=== PATIENT | female | born 1975 | race Hispanic/Latino ===

== ENCOUNTER 2017-05-09 15:30 | Inpatient (IN) | payer MEDICAID ==
[2017-05-09 15:31] VITALS: BMI 27.3
[2017-05-09] MEDS ORDERED: Sodium Chloride 0.9% 1,000 ML IV ONE (15:56)
--- NOTE | 2017-05-09 16:23 | C.PDOC ---
History Of Present Illness 41 y/o female presents to ED with complaints of multiple episodes of Epistaxis since last Saturday. Patient states she was seen at [facility] yesterday and a packing was inserted in right nostril and instructed to follow up with Dr. Arguelles. Dr. Arguelles saw her and changed packing with instructions that if bleeding continued to come back. Patient states she was on her way home when she started to bleed from left nostril and advised to come to ED for evaluation. No other complaints at this time. Time Seen by Provider: 05/09/17 15:52 Chief Complaint (Nursing): ENT Problem History Per: Patient History/Exam Limitations: None Onset/Duration Of Symptoms: Days Current Symptoms Are (Timing): Still Present Past Medical History Reviewed: Historical Data, Nursing Documentation, Vital Signs Vital Signs: Last Vital Signs Temp 98.1 F 05/09/17 15:36 Pulse 85 05/09/17 15:36 Resp 20 05/09/17 15:36 BP 123/88 05/09/17 15:36 Pulse Ox 100 05/09/17 16:26 - [facility] Procedures LAPAROSCOPIC CHOLECYSTECTOMY (02/28/15) OTHER OPEN UMBILICAL HERNIORRHAPHY (02/28/15) Family History: States: No Known Family Hx - Social History Hx Alcohol Use: No Hx Substance Use: No - Immunization History Hx Tetanus Toxoid Vaccination: No Hx Influenza Vaccination: No Review Of Systems Except As Marked, All Systems Reviewed And Found Negative. Constitutional: Negative for: Fever, Chills ENT: Positive for: Nose Discharge Gastrointestinal: Negative for: Nausea, Vomiting, Diarrhea Neurological: Positive for: Dizziness Physical Exam - Physical Exam Appears: Chronically Ill Skin: Pale Head: Atraumatic, Normacephalic Nose: Epistaxis, Other (Packing on right nostril) Oral Mucosa: Dry Neurological/Psych: Oriented x3 ED Course And Treatment - Laboratory Results Result Diagrams: 05/09/17 16:55 05/09/17 16:55 O2 Sat by Pulse Oximetry: 100 (RA) Pulse Ox Interpretation: Normal Medical Decision Making Medical Decision Making: Patient with symptomatic anemia. SOB, from epistaxis. Spoke with Dr. Garber. Agrees with plan, Obs. Disposition Discussed With : Sebastien Garber Counseled Patient/Family Regarding: Studies Performed, Diagnosis - Disposition Disposition: HOSPITALIZED Disposition Time: 17:22 Condition: GUARDED - POA Present On Arrival: None - Clinical Impression Clinical Impression: Anemia, Epistaxis, recurrent - Cherylibe Statement The provider has reviewed the documentation as recorded by the Cherie Sawyer All medical record entries made by the Cherie were at my direction and personally dictated by me. I have reviewed the chart and agree that the record accurately reflects my personal performance of the history, physical exam, medical decision making, and the department course for this patient. I have also personally directed, reviewed, and agree with the discharge instructions and disposition. Decision To Admit - Pt Status Changed To: Hospital Disposition Of: Observation - . Bed Request Type: Regular Patient Diagnosis: Anemia, Epistaxis, recurrent
[2017-05-09] MEDS ORDERED: Sodium Chloride 0.9% 1,000 ML ONE (16:58)
[2017-05-09 17:00] LABS: BASO % 0.2 % (0.0-2.0); EOS % 0.1 % (0.0-4.0); HEMOGLOBIN 7.6 g/dL (11.0-16.0); LYMPH # 1.4 K/uL (1.0-4.3); LYMPH % 8.3 % (20.0-40.0); MEAN CELL VOLUME 86.7 fL (81.0-99.0); MEAN CORPUSCULAR HEMOGLOBIN 28.2 pg (27.0-31.0); MEAN CORPUSCULAR HGB CONC 32.5 g/dL (33.0-37.0); MEAN PLATELET VOLUME 7.4 fL (7.2-11.7); MONO # 0.7 K/uL (0.0-0.8); NEUT # 14.3 K/uL (1.8-7.0); NEUT % 87.4 % (50.0-75.0); PLATELET COUNT 291 K/uL (130-400); RBC 2.71 Mil/uL (3.80-5.20); RED CELL DISTRIBUTION WIDTH 13.1 % (11.5-14.5); WHITE BLOOD COUNT 16.4 K/uL (4.8-10.8)
[2017-05-09 17:09] LABS: ALBUMIN 3.7 g/dL (3.5-5.0)
[2017-05-09 17:12] LABS: AST/SGOT 20 U/L (14-36); GFR AFRICAN-AMERICAN > 60; GFR NON-AFRICAN AMERICAN > 60
[2017-05-09 17:13] LABS: ALT/SGPT 34 U/L (9-52); BLOOD UREA NITROGEN 25 mg/dL (7-17); CALCIUM 8.2 mg/dl (8.6-10.4)
[2017-05-09] MEDS ORDERED: Morphine 4 MG/ML VIAL ONE ×2 (17:15→17:58)
[2017-05-09 17:21] LABS: B-TYPE NATRIURETIC PEPTIDE 52.9 pg/mL (0-450)
[2017-05-09] MEDS ORDERED: ceFAZolin IV 1 gm in Dextrose 1 GM/50 ML BAG IVPB STA (17:53)
[2017-05-09 18:24] LABS: BANDS 2 % (0-2); LYMPHOCYTE 4 % (20-40); NEUTROPHIL 94 % (50-75); PLATELET ESTIMATE NORMAL (NORMAL); TOTAL CELLS COUNTED 100
[2017-05-09] MEDS ORDERED: Phenol Topical 1.4% Throat Spray (180 ml) MT PRN (22:00)
--- NOTE | 2017-05-09 23:09 | CP.PCM.HP ---
History of Present Illness - History of Present Illness History of Present Illness: 41 y/o female presents to ED with complaints of multiple episodes of Epistaxis since last Saturday. Patient states she was seen at [facility] yesterday and a packing was inserted in right nostril and instructed to follow up with Dr. Arguelles. Dr. Arguelles saw her and changed packing with instructions that if bleeding continued to come back. Patient states she was on her way home when she started to bleed from left nostril and advised to come to ED for evaluation. No other complaints at this time. Present on Admission - Present on Admission Any Indicators Present on Admission: Yes Past Patient History - Past Medical History & Family History Past Medical History?: No - Past Social History Smoking Status: Never Smoked - MUSCULOSKELETAL/RHEUMATOLOGICAL Hx Falls: No - PSYCHIATRIC Hx Substance Use: No - SURGICAL HISTORY Hx Surgeries: No - ANESTHESIA Hx Anesthesia: No Hx Anesthesia Reactions: No Hx Malignant Hyperthermia: No Has any member of the family had a problem w/ anesthesia?: No Meds Allergies/Adverse Reactions: Allergies Allergy/AdvReac Type Severity Reaction Status Date / Time No Known Allergies Allergy Verified 05/09/17 15:41 Results - Vital Signs Recent Vital Signs: Last Vital Signs Temp 98.1 F 05/09/17 15:36 Pulse 89 05/09/17 20:45 Resp 20 05/09/17 20:45 BP 150/80 05/09/17 20:45 Pulse Ox 100 05/09/17 20:49 - Labs Result Diagrams: 05/13/17 07:15 05/13/17 07:15 Assessment & Plan (1) Anemia Status: Acute (2) Epistaxis, recurrent Status: Acute
[2017-05-09 23:20] LABS: HEMOGLOBIN 6.9 g/dL (11.0-16.0); MEAN CELL VOLUME 86.8 fL (81.0-99.0); MEAN CORPUSCULAR HEMOGLOBIN 28.7 pg (27.0-31.0); MEAN CORPUSCULAR HGB CONC 33.1 g/dL (33.0-37.0); MEAN PLATELET VOLUME 7.1 fL (7.2-11.7); RBC 2.39 Mil/uL (3.80-5.20); RED CELL DISTRIBUTION WIDTH 13.1 % (11.5-14.5); WHITE BLOOD COUNT 13.3 K/uL (4.8-10.8)
[2017-05-10] MEDS ORDERED: Phenol Topical 1.4% Throat Spray (180 ml) MT PRN (03:26)
[2017-05-10 06:48] LABS: MEAN CELL VOLUME 86.5 fL (81.0-99.0); MEAN CORPUSCULAR HEMOGLOBIN 28.5 pg (27.0-31.0); MEAN CORPUSCULAR HGB CONC 32.9 g/dL (33.0-37.0); MEAN PLATELET VOLUME 7.6 fL (7.2-11.7); RBC 2.29 Mil/uL (3.80-5.20); RED CELL DISTRIBUTION WIDTH 13.3 % (11.5-14.5); WHITE BLOOD COUNT 11.8 K/uL (4.8-10.8)
[2017-05-10 06:56] LABS: BLOOD UREA NITROGEN 13 mg/dL (7-17); CALCIUM 7.9 mg/dl (8.6-10.4); GFR AFRICAN-AMERICAN > 60; GFR NON-AFRICAN AMERICAN > 60
[2017-05-10 07:07] LABS: HEMOGLOBIN 6.5 g/dL (11.0-16.0)
[2017-05-10] MEDS ORDERED: Ferric Sodium Gluconat Complex 62.5 mg/5 ml Vial IVPB SCH (10:00)
[2017-05-10] MEDS ORDERED: Pneumococcal 23-Valent Vaccine IM ONE (10:00)
[2017-05-10] MEDS: Potassium Chloride 20 mEq ER Tab PO SCH (10:59)
--- NOTE | 2017-05-10 11:03 | CARD ---
APPROVED REPORT EKG Measurement Heart [id number] <Conclusion> Normal sinus rhythm Normal ECG
[2017-05-10] MEDS ORDERED: Apap-Butalbital-Caffeine 325-50-40mg Tab PO PRN (13:45)
--- NOTE | 2017-05-10 16:25 | CP.PCM.PN ---
Subjective - Date & Time of Evaluation Date of Evaluation: 05/10/17 Time of Evaluation: 16:22 - Subjective Subjective: no epistaxis with the pack in place. Patient has a lot of pain. CBC noted with low hemoglobin head: atraumatic face: good movements const: well fed com: communicates well external nose and ears: no masses nose: pack in place, no bleeding oc/op: no blood pnd lips/gums: no masses, neck: supple lymph: no lad thyroid: no goiter a/p: epistaxis posterior will take to or to remove pack and cauterize Objective - Vital Signs/Intake and Output Vital Signs (last 24 hours): Temp Pulse Resp BP Pulse Ox 98.3 F 86 20 142/82 100 05/10/17 16:00 05/10/17 16:00 05/10/17 16:00 05/10/17 16:00 05/10/17 16:00 Intake and Output: 05/10/17 05/10/17 06:59 18:59 Intake Total 100 405 Balance 100 405 - Medications Medications: Current Medications Acetaminophen/Butalbital/Caffeine (Fioricet) 1 tab PO Q6 PRN PRN Reason: Headache Last Admin: 05/10/17 14:29 Dose: 1 tab Benzonatate (Tessalon Perles) 100 mg PO TID PRN PRN Reason: Sore Throat Last Admin: 05/10/17 03:55 Dose: 100 mg Ferric Sodium Gluconate Complex (Ferrlecit) 125 mg IVPB DAILY [facility] Stop: 05/18/17 10:01 Losartan Potassium (Cozaar) 50 mg PO DAILY [facility] Last Admin: 05/10/17 11:04 Dose: 50 mg Phenol/Menthol (Phenaseptic 1.4% Throat [place]) 5 ml MT Q4 PRN PRN Reason: Sore Throat Last Admin: 05/10/17 04:01 Dose: 5 ml Potassium Chloride (K-Dur 20 Meq Er Tab) 20 meq PO DAILY E[facility] Stop: 05/12/17 23:59 Last Admin: 05/10/17 10:59 Dose: 20 meq - Labs Labs: 05/10/17 06:27 05/10/17 06:27
[2017-05-10] MEDS: Ferric Sodium Gluconat Complex 62.5 mg/5 ml Vial IVPB SCH (16:56)
[2017-05-10] MEDS ORDERED: Apap-Butalbital-Caffeine 325-50-40mg Tab PO STA (16:57)
--- NOTE | 2017-05-10 18:17 | RAD ---
HISTORY: for OR COMPARISON: No prior. TECHNIQUE: Chest PA and lateral FINDINGS: LUNGS: The lungs are well inflated and clear. PLEURA: No significant pleural effusion identified. No pneumothorax apparent. CARDIOVASCULAR: Normal. OSSEOUS STRUCTURES: No significant abnormalities. VISUALIZED UPPER ABDOMEN: Normal. OTHER FINDINGS: None. IMPRESSION: No acute findings.
[2017-05-10] MEDS: Apap-Butalbital-Caffeine 325-50-40mg Tab PO PRN (23:08)
--- NOTE | 2017-05-10 23:08 | CP.PCM.PN ---
Subjective - Date & Time of Evaluation Date of Evaluation: 05/10/17 Time of Evaluation: 19:40 - Subjective Subjective: no epistaxis with the pack in place. Patient has a lot of pain. CBC noted with low hemoglobin Objective - Vital Signs/Intake and Output Vital Signs (last 24 hours): Temp Pulse Resp BP Pulse Ox 98.3 F 86 20 142/82 100 05/10/17 16:00 05/10/17 16:00 05/10/17 16:00 05/10/17 16:00 05/10/17 16:00 - Medications Medications: Current Medications Acetaminophen/Butalbital/Caffeine (Fioricet) 2 tab PO Q6 PRN PRN Reason: Headache Benzonatate (Tessalon Perles) 100 mg PO TID PRN PRN Reason: Sore Throat Last Admin: 05/10/17 03:55 Dose: 100 mg Ferric Sodium Gluconate Complex (Ferrlecit) 125 mg IVPB DAILY [facility] Stop: 05/18/17 10:01 Last Admin: 05/10/17 16:56 Dose: 125 mg Losartan Potassium (Cozaar) 50 mg PO DAILY [facility] Last Admin: 05/10/17 11:04 Dose: 50 mg Phenol/Menthol (Phenaseptic 1.4% Throat [place]) 5 ml MT Q4 PRN PRN Reason: Sore Throat Last Admin: 05/10/17 04:01 Dose: 5 ml Potassium Chloride (K-Dur 20 Meq Er Tab) 20 meq PO DAILY [facility] Stop: 05/12/17 23:59 Last Admin: 05/10/17 10:59 Dose: 20 meq
--- NOTE | 2017-05-11 03:40 | PROCN ---
PRE-PROCEDURE DIAGNOSES: 1. Posterior epistaxis. 2. Posterior pack on the right. POST-PROCEDURE DIAGNOSES: 1. Posterior epistaxis. 2. Posterior pack on the right. PROCEDURE: The patient was placed in seated position, a Carrasquillo catheter was inserted in the nasal cavity. The balloon was inflated in the nasopharynx. Xeroform gauze was packed against the Carrasquillo catheter balloon going from the posterior to anterior direction and the Carrasquillo was secured in place using a clamp. The left side of the nose was also packed using xeroform gauze going from posterior to anterior direction. Bleeding was noted to be controlled. The patient tolerated the procedure well. Adarsh Arguelles MD MTDD
[2017-05-11] MEDS: Apap-Butalbital-Caffeine 325-50-40mg Tab PO PRN (04:37)
[2017-05-11 06:40] LABS: BLOOD UREA NITROGEN 9 mg/dL (7-17); GFR AFRICAN-AMERICAN > 60; GFR NON-AFRICAN AMERICAN > 60
[2017-05-11 06:41] LABS: CALCIUM 8.5 mg/dl (8.6-10.4)
[2017-05-11 06:42] LABS: HEMOGLOBIN 9.1 g/dL (11.0-16.0); MEAN CELL VOLUME 87.7 fL (81.0-99.0); MEAN CORPUSCULAR HEMOGLOBIN 29.7 pg (27.0-31.0); MEAN CORPUSCULAR HGB CONC 33.9 g/dL (33.0-37.0); MEAN PLATELET VOLUME 7.4 fL (7.2-11.7); RBC 3.07 Mil/uL (3.80-5.20)
[2017-05-11 06:50] LABS: INR 1.1; PROTHROMBIN TIME 12.1 SECONDS (9.7-12.2)
[2017-05-11] MEDS ORDERED: Lactated Ringer's 1,000 ML IV ONE (07:45)
[2017-05-11] MEDS ORDERED: Midazolam 2 MG/2 ML VIAL ONE (07:55)
[2017-05-11] MEDS ORDERED: Propofol 10 mg/ml Inj (20 ML) ONE (07:55)
[2017-05-11] MEDS ORDERED: ceFAZolin IV 1 gm in Dextrose 1 GM/50 ML BAG IVPB ONE (07:59)
[2017-05-11] MEDS ORDERED: EPINEPHrine 1:1000 Nasal Sol(30mL) ONE (07:59)
[2017-05-11] MEDS ORDERED: Succinylcholine Chloride 20 mg/ml Syr (5 ml) IV ONE (08:37)
[2017-05-11] MEDS ORDERED: Rocuronium 10 mg/ml (5 ml) ONE (08:37)
[2017-05-11] MEDS ORDERED: HYDROmorphone 0.5 mg/0.5 ml ISec IVP PRN (08:59)
[2017-05-11] MEDS: Potassium Chloride 20 mEq ER Tab PO SCH (11:39)
[2017-05-11] MEDS: Ferric Sodium Gluconat Complex 62.5 mg/5 ml Vial IVPB SCH (11:39)
[2017-05-11] MEDS ORDERED: Potassium Chloride 20 mEq/15 ml LIQ UD PO STA (14:18)
--- NOTE | 2017-05-12 01:23 | CP.PCM.PN ---
Subjective - Date & Time of Evaluation Date of Evaluation: 05/11/17 Time of Evaluation: 13:00 - Subjective Subjective: Pt seen and evalauted, is improving Objective - Vital Signs/Intake and Output Vital Signs (last 24 hours): Temp Pulse Resp BP Pulse Ox 98 F 94 H 20 110/75 96 05/11/17 23:50 05/11/17 23:50 05/11/17 23:50 05/11/17 23:50 05/11/17 23:50 Intake and Output: 05/11/17 05/12/17 18:59 06:59 Intake Total 350 400 Balance 350 400 - Medications Medications: Current Medications Acetaminophen/Butalbital/Caffeine (Fioricet) 2 tab PO Q6 PRN PRN Reason: Headache Last Admin: 05/11/17 04:37 Dose: 2 tab Benzonatate (Tessalon Perles) 100 mg PO TID PRN PRN Reason: Sore Throat Last Admin: 05/10/17 03:55 Dose: 100 mg Ferric Sodium Gluconate Complex (Ferrlecit) 125 mg IVPB DAILY [facility] Stop: 05/18/17 10:01 Last Admin: 05/11/17 11:39 Dose: 125 mg Losartan Potassium (Cozaar) 50 mg PO DAILY [facility] Last Admin: 05/11/17 11:38 Dose: Not Given Phenol/Menthol (Phenaseptic 1.4% Throat [place]) 5 ml MT Q4 PRN PRN Reason: Sore Throat Last Admin: 05/10/17 04:01 Dose: 5 ml Potassium Chloride (K-Dur 20 Meq Er Tab) 20 meq PO DAILY [facility] Stop: 05/12/17 23:59 Last Admin: 05/11/17 11:39 Dose: 20 meq - Labs Labs: 05/11/17 06:22 05/11/17 06:22 PT 12.1 SECONDS (9.7-12.2) 05/11/17 06:22 INR 1.1 05/11/17 06:22 APTT 29 SECONDS (21-34) 05/11/17 06:22 - Constitutional Appears: No Acute Distress - Head Exam Head Exam: ATRAUMATIC, NORMAL INSPECTION, NORMOCEPHALIC - Eye Exam Eye Exam: EOMI, Normal appearance, PERRL Pupil Exam: NORMAL ACCOMODATION, PERRL - Respiratory Exam Respiratory Exam: Clear to Ausculation Bilateral, NORMAL BREATHING PATTERN - Cardiovascular Exam Cardiovascular Exam: REGULAR RHYTHM, +S1, +S2. absent: Murmur - GI/Abdominal Exam GI & Abdominal Exam: Soft, Normal Bowel Sounds. absent: Tenderness Assessment and Plan (1) Anemia Status: Acute (2) Epistaxis, recurrent Status: Acute
[2017-05-12 07:59] LABS: BASO # 0.1 K/uL (0.0-0.2); BASO % 0.5 % (0.0-2.0); EOS # 0.1 K/uL (0.0-0.7); EOS % 1.1 % (0.0-4.0); HEMOGLOBIN 8.2 g/dL (11.0-16.0); LYMPH % 32.1 % (20.0-40.0); MEAN CELL VOLUME 88.3 fL (81.0-99.0); MEAN CORPUSCULAR HEMOGLOBIN 29.8 pg (27.0-31.0); MEAN CORPUSCULAR HGB CONC 33.8 g/dL (33.0-37.0); MEAN PLATELET VOLUME 7.3 fL (7.2-11.7); MONO % 10.5 % (0.0-10.0); NEUT # 5.2 K/uL (1.8-7.0); NEUT % 55.8 % (50.0-75.0); NRBC % 0.3 % (0.0-2.0); RBC 2.74 Mil/uL (3.80-5.20); RED CELL DISTRIBUTION WIDTH 13.2 % (11.5-14.5); WHITE BLOOD COUNT 9.3 K/uL (4.8-10.8)
[2017-05-12 08:29] LABS: ALBUMIN 3.4 g/dL (3.5-5.0)
[2017-05-12 08:32] LABS: ALT/SGPT 33 U/L (9-52); AST/SGOT 23 U/L (14-36); BLOOD UREA NITROGEN 15 mg/dL (7-17); GFR AFRICAN-AMERICAN > 60; GFR NON-AFRICAN AMERICAN > 60
[2017-05-12 08:33] LABS: CALCIUM 8.7 mg/dl (8.6-10.4); MAGNESIUM 2.2 mg/dL (1.6-2.3)
[2017-05-12] MEDS: Ferric Sodium Gluconat Complex 62.5 mg/5 ml Vial IVPB SCH (10:51)
[2017-05-12] MEDS: Potassium Chloride 20 mEq ER Tab PO SCH (10:51)
[2017-05-12] MEDS ORDERED: Potassium Chloride 20 mEq/15 ml LIQ UD PO ONE (16:30)
--- NOTE | 2017-05-12 21:32 | CP.PCM.PN ---
Subjective - Date & Time of Evaluation Date of Evaluation: 05/12/17 Time of Evaluation: 10:00 - Subjective Subjective: pt seen & examined at bedside, her epistaxis got worse last night. Hb dropped down by 1 gm, we will hold the discharge and call for E.N.T eval Objective - Vital Signs/Intake and Output Vital Signs (last 24 hours): Temp Pulse Resp BP Pulse Ox 98.4 F 87 18 100/66 98 05/12/17 15:00 05/12/17 15:00 05/12/17 15:00 05/12/17 15:00 05/12/17 15:00 Intake and Output: 05/12/17 05/13/17 18:59 06:59 Intake Total 580 Balance 580 - Medications Medications: Current Medications Acetaminophen/Butalbital/Caffeine (Fioricet) 2 tab PO Q6 PRN PRN Reason: Headache Last Admin: 05/11/17 04:37 Dose: 2 tab Benzonatate (Tessalon Perles) 100 mg PO TID PRN PRN Reason: Sore Throat Last Admin: 05/10/17 03:55 Dose: 100 mg Ferric Sodium Gluconate Complex (Ferrlecit) 125 mg IVPB DAILY [facility] Stop: 05/18/17 10:01 Last Admin: 05/12/17 10:51 Dose: 125 mg Losartan Potassium (Cozaar) 50 mg PO DAILY [facility] Last Admin: 05/12/17 10:51 Dose: 50 mg Phenol/Menthol (Phenaseptic 1.4% Throat [place]) 5 ml MT Q4 PRN PRN Reason: Sore Throat Last Admin: 05/10/17 04:01 Dose: 5 ml Potassium Chloride (K-Dur 20 Meq Er Tab) 20 meq PO DAILY [facility] Stop: 05/12/17 23:59 Last Admin: 05/12/17 10:51 Dose: 20 meq - Labs Labs: 05/12/17 07:53 05/12/17 07:53 PT 12.1 SECONDS (9.7-12.2) 05/11/17 06:22 INR 1.1 05/11/17 06:22 APTT 29 SECONDS (21-34) 05/11/17 06:22 - Constitutional Appears: No Acute Distress - Head Exam Head Exam: ATRAUMATIC, NORMAL INSPECTION, NORMOCEPHALIC - Eye Exam Eye Exam: EOMI, Normal appearance, PERRL Pupil Exam: NORMAL ACCOMODATION, PERRL - Respiratory Exam Respiratory Exam: Decreased Breath Sounds, NORMAL BREATHING PATTERN - Cardiovascular Exam Cardiovascular Exam: REGULAR RHYTHM, +S1, +S2. absent: Murmur - GI/Abdominal Exam GI & Abdominal Exam: Soft, Normal Bowel Sounds. absent: Tenderness Assessment and Plan (1) Anemia Status: Acute (2) Epistaxis, recurrent Status: Acute
[2017-05-12 22:01] LABS: HEMOGLOBIN 8.2 g/dL (11.0-16.0); MEAN CELL VOLUME 88.1 fL (81.0-99.0); MEAN CORPUSCULAR HEMOGLOBIN 29.7 pg (27.0-31.0); MEAN CORPUSCULAR HGB CONC 33.7 g/dL (33.0-37.0); RBC 2.77 Mil/uL (3.80-5.20); RED CELL DISTRIBUTION WIDTH 13.5 % (11.5-14.5)
[2017-05-13 07:30] LABS: HEMOGLOBIN 8.3 g/dL (11.0-16.0); MEAN CELL VOLUME 89.5 fL (81.0-99.0); MEAN CORPUSCULAR HEMOGLOBIN 30.1 pg (27.0-31.0); MEAN CORPUSCULAR HGB CONC 33.6 g/dL (33.0-37.0); RBC 2.76 Mil/uL (3.80-5.20); RED CELL DISTRIBUTION WIDTH 13.6 % (11.5-14.5)
[2017-05-13 07:57] LABS: GFR AFRICAN-AMERICAN > 60; GFR NON-AFRICAN AMERICAN > 60
[2017-05-13 07:58] LABS: BLOOD UREA NITROGEN 21 mg/dL (7-17); CALCIUM 8.2 mg/dl (8.6-10.4)
[2017-05-13] MEDS ORDERED: Potassium Chloride 20 mEq/15 ml LIQ UD PO ONE (10:00)
[2017-05-13] MEDS: Ferric Sodium Gluconat Complex 62.5 mg/5 ml Vial IVPB SCH (10:40)
--- NOTE | 2017-05-13 11:53 | CP.PCM.PN ---
Subjective - Date & Time of Evaluation Date of Evaluation: 05/13/17 Time of Evaluation: 18:00 - Subjective Subjective: Pt seen and evaluated, charts and labs reviewed is improving Objective - Vital Signs/Intake and Output Vital Signs (last 24 hours): Temp Pulse Resp BP Pulse Ox 97.4 F L 89 20 101/66 98 05/13/17 09:01 05/13/17 09:01 05/13/17 09:01 05/13/17 09:01 05/13/17 09:01 Intake and Output: 05/13/17 05/13/17 06:59 18:59 Intake Total 300 200 Balance 300 200 - Medications Medications: Current Medications Acetaminophen/Butalbital/Caffeine (Fioricet) 2 tab PO Q6 PRN PRN Reason: Headache Last Admin: 05/11/17 04:37 Dose: 2 tab Benzonatate (Tessalon Perles) 100 mg PO TID PRN PRN Reason: Sore Throat Last Admin: 05/10/17 03:55 Dose: 100 mg Ferric Sodium Gluconate Complex (Ferrlecit) 125 mg IVPB DAILY [facility] Stop: 05/18/17 10:01 Last Admin: 05/13/17 10:40 Dose: 125 mg Losartan Potassium (Cozaar) 50 mg PO DAILY [facility] Last Admin: 05/13/17 10:41 Dose: Not Given Phenol/Menthol (Phenaseptic 1.4% Throat [place]) 5 ml MT Q4 PRN PRN Reason: Sore Throat Last Admin: 05/10/17 04:01 Dose: 5 ml - Labs Labs: 05/13/17 07:15 05/13/17 07:15 PT 12.1 SECONDS (9.7-12.2) 05/11/17 06:22 INR 1.1 05/11/17 06:22 APTT 29 SECONDS (21-34) 05/11/17 06:22 Assessment and Plan (1) Anemia Status: Acute (2) Epistaxis, recurrent Status: Acute
--- NOTE | 2017-05-13 12:08 | CP.PCM.PN ---
Subjective - Date & Time of Evaluation Date of Evaluation: 05/13/17 Time of Evaluation: 12:05 - Subjective Subjective: patient is actively bleeding. She is refusing posterior packing unless she gets anesthesia. She states that she can no urinate therefore a ucg can not be obtained. Since she is bleeding and needs it to be controled emergently, it is not adivsable to wait for the patient to urinate to get a ucg. I explained risks and benefits of not getting a ucg to her and she agrees she should go to the or without an ucg to controle her active bleeding. Objective - Vital Signs/Intake and Output Vital Signs (last 24 hours): Temp Pulse Resp BP Pulse Ox 97.4 F L 89 20 101/66 98 05/13/17 09:01 05/13/17 09:01 05/13/17 09:01 05/13/17 09:01 05/13/17 09:01 Intake and Output: 05/13/17 05/13/17 06:59 18:59 Intake Total 300 200 Balance 300 200 - Medications Medications: Current Medications Acetaminophen/Butalbital/Caffeine (Fioricet) 2 tab PO Q6 PRN PRN Reason: Headache Last Admin: 05/11/17 04:37 Dose: 2 tab Benzonatate (Tessalon Perles) 100 mg PO TID PRN PRN Reason: Sore Throat Last Admin: 05/10/17 03:55 Dose: 100 mg Ferric Sodium Gluconate Complex (Ferrlecit) 125 mg IVPB DAILY [facility] Stop: 05/18/17 10:01 Last Admin: 05/13/17 10:40 Dose: 125 mg Potassium Chloride (Potassium Chloride 10 Meq/100 Ml) 10 meq in 100 mls @ 100 mls/hr IVPB ONCE ONE Stop: 05/13/17 13:00 Losartan Potassium (Cozaar) 50 mg PO DAILY [facility] Last Admin: 05/13/17 10:41 Dose: Not Given Phenol/Menthol (Phenaseptic 1.4% Throat [place]) 5 ml MT Q4 PRN PRN Reason: Sore Throat Last Admin: 05/10/17 04:01 Dose: 5 ml - Labs Labs: 05/13/17 07:15 05/13/17 07:15 PT 12.1 SECONDS (9.7-12.2) 05/11/17 06:22 INR 1.1 07/15/17 06:22 APTT 29 SECONDS (21-34) 05/11/17 06:22
[2017-05-13] MEDS ORDERED: EPINEPHrine 1:1000 Nasal Sol(30mL) ONE (12:11)
[2017-05-13] MEDS ORDERED: Propofol 10 mg/ml Inj (20 ML) ONE (12:19)
[2017-05-13] MEDS ORDERED: Midazolam 2 MG/2 ML VIAL ONE (12:19)
[2017-05-13] MEDS ORDERED: Sodium Citrate/Citric Acid 15 ml Sol ONE (12:20)
[2017-05-13] MEDS ORDERED: ceFAZolin IV 1 gm in Dextrose 1 GM/50 ML BAG IVPB ONE (12:38)
[2017-05-13] MEDS ORDERED: Sodium Chloride 0.9% 1,000 ML IV ONE ×2 (13:00→14:30)
[2017-05-13] MEDS ORDERED: HYDROmorphone 0.5 mg/0.5 ml ISec IVP PRN (13:04)
[2017-05-13 14:19] LABS: HEMOGLOBIN 8.4 g/dL (11.0-16.0)
[2017-05-13 16:02] VITALS: BP 125/80; PULSE 99; RESP 20; TEMP 97.5; O2SAT 95
[2017-05-13] MEDS ORDERED: ceFAZolin 1 gm FROZEN Premix 1 GM/50 ML ML IVPB SCH (20:30)
--- NOTE | 2017-05-14 10:13 | CP.PCM.DIS ---
Provider - Provider Date of Admission: 05/10/17 18:32 Attending physician: Sebastien Garber MD Time Spent in preparation of Discharge (in minutes): 45 Diagnosis - Discharge Diagnosis (1) Anemia Status: Acute (2) Epistaxis, recurrent Status: Acute Hospital Course - Lab Results Lab Results: Most Recent Lab Values WBC 12.0 K/uL (4.8-10.8) H 05/13/17 07:15 RBC 2.76 Mil/uL (3.80-5.20) L 05/13/17 07:15 Hgb 8.4 g/dL (11.0-16.0) L 05/13/17 14:15 Hct 25.2 % (34.0-47.0) L 05/13/17 14:15 MCV 89.5 fL (81.0-99.0) 05/13/17 07:15 MCH 30.1 pg (27.0-31.0) 05/13/17 07:15 MCHC 33.6 g/dL (33.0-37.0) 05/13/17 07:15 RDW 13.6 % (11.5-14.5) 05/13/17 07:15 Plt Count 322 K/uL (130-400) 05/13/17 07:15 MPV 7.0 fL (7.2-11.7) L 05/13/17 07:15 Neut % (Auto) 55.8 % (50.0-75.0) 05/12/17 07:53 Lymph % (Auto) 32.1 % (20.0-40.0) 05/12/17 07:53 Piatt % (Auto) 10.5 % (0.0-10.0) H 05/12/17 07:53 Eos % (Auto) 1.1 % (0.0-4.0) 05/12/17 07:53 Baso % (Auto) 0.5 % (0.0-2.0) 05/12/17 07:53 Neut # 5.2 K/uL (1.8-7.0) 05/12/17 07:53 Lymph # 3.0 K/uL (1.0-4.3) 05/12/17 07:53 Piatt # 1.0 K/uL (0.0-0.8) H 05/12/17 07:53 Eos # 0.1 K/uL (0.0-0.7) 05/12/17 07:53 Baso # 0.1 K/uL (0.0-0.2) 05/12/17 07:53 Neutrophils % (Manual) 94 % (50-75) H 05/09/17 16:55 Band Neutrophils % 2 % (0-2) 05/09/17 16:55 Lymphocytes % (Manual) 4 % (20-40) L 05/09/17 16:55 Monocytes % (Manual) TEST NOT PERFORMED 05/09/17 16:55 Platelet Estimate Normal (NORMAL) 05/09/17 16:55 PT 12.1 SECONDS (9.7-12.2) 05/11/17 06:22 INR 1.1 05/11/17 06:22 APTT 29 SECONDS (21-34) 05/11/17 06:22 Sodium 139 mmol/L (132-148) 05/13/17 07:15 Potassium 3.5 mmol/L (3.6-5.2) L 05/13/17 07:15 Chloride 103 mmol/L (98-107) 05/13/17 07:15 Carbon Dioxide 23 mmol/L (22-30) 05/13/17 07:15 Anion Gap 16 (10-20) 05/13/17 07:15 BUN 21 mg/dL (7-17) H 05/13/17 07:15 Creatinine 0.7 MG/DL (0.7-1.2) 05/13/17 07:15 Est GFR ( Amer) > 60 05/13/17 07:15 Est GFR (Non-Af Amer) > 60 05/13/17 07:15 Random Glucose 90 mg/dL (65-105) 05/13/17 07:15 Calcium 8.2 mg/dl (8.6-10.4) L 05/13/17 07:15 Phosphorus 2.8 mg/dL (2.5-4.5) 05/12/17 07:53 Magnesium 2.2 mg/dL (1.6-2.3) 05/12/17 07:53 Total Bilirubin 0.4 mg/dL (0.2-1.3) 05/12/17 07:53 AST 23 U/L (14-36) 05/12/17 07:53 ALT 33 U/L (9-52) 05/12/17 07:53 Alkaline Phosphatase 71 U/L (38-126) 05/12/17 07:53 Troponin I < 0.0120 ng/mL (0.00-0.120) 05/09/17 16:55 NT-Pro-B Natriuret Pep 52.9 pg/mL (0-450) 05/09/17 16:55 Total Protein 6.9 g/dL (6.3-8.3) 05/12/17 07:53 Albumin 3.4 g/dL (3.5-5.0) L 05/12/17 07:53 Globulin 3.5 gm/dL (2.2-3.9) 05/12/17 07:53 Albumin/Globulin Ratio 1.0 (1.0-2.1) 05/12/17 07:53 Urine HCG, Qual Negative (NEGATIVE) 05/10/17 18:09 Blood Type O POSITIVE 05/13/17 12:52 Antibody Screen Negative 05/13/17 12:52 - Hospital Course Hospital Course: Pt is still bleeding epitaxis and being transferred to [facility] for embolization Discharge Exam - Head Exam Head Exam: ATRAUMATIC, NORMAL INSPECTION, NORMOCEPHALIC Discharge Plan - Follow Up Plan Condition: GUARDED Disposition: Transfer [facility] Instructions: Nosebleed (GEN), Turbinate Reduction (DC) Referrals: Sebastien Garber MD [Staff Provider] -
--- NOTE | 2017-05-17 16:09 | CARD ---
APPROVED REPORT EKG Measurement Heart [id number] <Conclusion> Normal sinus rhythm Normal ECG
--- NOTE | 2017-05-17 21:13 | OP ---
DATE OF PROCEDURE: 05/13/2017 POSTOPERATIVE DIAGNOSIS: Right epistaxis. PROCEDURE: Right inferior turbinate reduction with right cauterization of epistaxis. DESCRIPTION OF PROCEDURE: The patient was brought to the room, placed in a supine position. Anesthesia was initiated through an ET tube. Adrenaline-soaked pledgets was inserted into the nasal cavity on the right after the pack was removed. The inferior turbinate on the right was reduced going from an inferior to superior anterior to posterior direction. The posterior portion of the inferior turbinate was reduced. This was done in order to give access to the sphenopalatine artery. Suction cautery was used to cauterize the lateral nasal wall posteriorly and inferiorly on the right in order to cauterize the sphenopalatine artery and bleeding was noted to be controlled. The patient was Valsalva, no bleeding was noted. At that point, the scope was removed. The patient was taken off anesthesia and taken to recovery room in stable manner. Adarsh Arguelles MD
--- NOTE | 2017-05-20 09:16 | OP ---
PROCEDURE DATE: *------* DESCRIPTION OF PROCEDURE: The patient was brought into the room, placed in the supine position. Anesthesia was initiated through an ET tube. Adrenaline-soaked pledgets were placed in the right nasal cavity, remained there for at least 5 minutes and removed. The lateral nasal wall posteriorly, anteriorly on the right was noted, no bleeding area was noted. Small amount of cauterization was done. Next, a posterior pack was placed using a traditional method. A red rubber catheter was inserted into the nasal cavity and taken out of the mouth. It was attached to a 4 x 4 using a suture. The red rubber catheter was pulled out of the nose, pulling the pledget into the nasopharynx. *------*gauze was used to pack the nose one from posterior to anterior direction and another 4 x 4 rolled up was secured anteriorly in the nose using the suture that was used to pulled the red rubber catheter through. At that point, no bleeding was noted. The patient was taken off anesthesia and taken to the recovery room in stable condition. Adarsh Arguelles MD
== END 2017-05-13 22:45 | disposition short-term general hospital (02) | DRG 55 ==
LOC: C.ER 15:30 → C.9E 17:24 → C.3T 20:18 → OBSVTOIN 05-10 18:32
PROVIDERS: ADMIT Internal Medicine; ATTEND Internal Medicine
PROC: 2Y41X5Z Packing of Nasal Region using Packing Material (ICD-10-PCS; principal; 2017-05-09)
PROC: 095L7ZZ Destruction of Nasal Turbinate, Via Natural or Artificial Opening (ICD-10-PCS; 2017-05-13)
PROC: 0W3Q7ZZ Control Bleeding in Respiratory Tract, Via Natural or Artificial Opening (ICD-10-PCS; 2017-05-13)
DX: R04.0 Epistaxis (principal); D64.9 Anemia, unspecified; J32.9 Chronic sinusitis, unspecified